=== PATIENT | male | born 1950 | race Caucasian/White ===

== ENCOUNTER 2023-06-01 15:42 | Observation (INO) | payer MEDICARE, OTHER, SELFPAY ==
[2023-06-01] VITALS (13 sets, daily range): BP systolic 130–176; BP diastolic 70–97; PULSE 61–83; RESP 18–20; TEMP 36.2–36.9; O2SAT 94–98; BMI 34.7; BMI 35.5
--- NOTE | 2023-06-01 15:50 | ECG_ITS ---
[facility] Test Date: 2023-06-01 Pat Name: MARIO ROBERTO Department: Room: - Gender: Male Huc: : 1950 Requested By: Order Number: [id number] Reading MD: AYLA LEWIS Measurements Intervals [place] Rate: 69 P: 20 DE: 174 QRS: 15 QRSD: 96 T: -21 QT: 362 QTc: 381 Interpretive Statements 1100 Sinus rhythm 3634 Inferior myocardial infarction, age undetermined 9150 abnormal ECG No previous ECG available for comparison Electronically Signed On 06-02-2023 17:39:57 EST by AYLA LEWIS
--- NOTE | 2023-06-01 15:50 | ED.CHESTPAI1 ---
HPI - Chest Pain General Chief Complaint: Chest Pain Stated Complaint: Chest Pain Time Seen by Provider: 06/01/23 15:50 Source: patient Mode of arrival: walk-in History of Present Illness HPI narrative: The patient presenting to us with a retrosternal chest pain that started while he was walking his dog outside, almost an hour before arrival, the patient was pressure-like not associate with any nausea vomiting or chills or any sweating. The patient mentioned that he have history of coronary artery disease with 2 stents the patient also mentioned that the pain got better after he received nitro and it went down from 7 to 2 The patient denies any other complaints or feeling sick before this happened, Related Data Home Medications Medication Instructions Recorded Confirmed clopidogrel 75 mg tablet 75 mg PO Q24H 06/01/23 06/01/23 lisinopril 5 mg tablet 5 mg PO Q24H 06/01/23 06/01/23 metoprolol tartrate 25 mg tablet 25 mg PO Q24H 06/01/23 06/01/23 nitroglycerin 0.4 mg sublingual 0.4 mg sublingual Q5M 06/01/23 06/01/23 tablet pantoprazole 20 mg tablet,delayed 20 mg PO Q24H 06/01/23 06/01/23 release rosuvastatin 10 mg tablet 10 mg PO Q24H 06/01/23 06/01/23 Allergies Allergy/AdvReac Type Severity Reaction Status Date / Time No Known Drug Allergies Allergy Verified 06/01/23 15:49 Review of Systems ROS Status of ROS 10 or more systems reviewed and unremarkable except as noted in history and below Exam Narrative Exam Narrative: Nurses notes and vital signs reviewed and patient is not hypoxic. General: Well-appearing and in no apparent distress. Skin: Warm, dry, no pallor noted. No rash. Head: Normocephalic, atraumatic. Neck: Supple, non-tender. Eye: Pupils are equal, round and EOMI. No scleral icterus. Ears, Nose, Mouth, and Throat: TM are clear, no nasal mucosal hypertrophy. Oral mucosa is moist, no posterior oropharynx erythema, uvula is mid-line Cardiovascular: Regular Rate and Rhythm without murmur, gallop or rub. Respiratory: No accessory muscle use or respiratory distress. Lungs are clear to auscultation, no wheezing, rales or rhonchi Chest Wall: no tenderness Back: No midline thoracic or lumbar vertebral tenderness. No CVA tenderness Musculoskeletal: normal ROM, no calf or popliteal tenderness, no lower extremity edema/swelling GI: Abdomen is soft, non-distended. Normal bowel sounds. No masses appreciated. No tenderness to palpation. No rebound, guarding, or rigidity noted. Neurological: A&O x4. No cranial nerve dysfunction observed. No truncal ataxia. Moves all extremities. Sensation intact. Psychiatric: Cooperative and interactive. Normal mood and affect. Constitutional Vital Signs, click to edit/add: Last Vital Signs Temp 97.6 F 06/01/23 15:45 Pulse 64 06/01/23 17:38 Resp 18 06/01/23 17:38 BP 158/97 H 06/01/23 18:41 Pulse Ox 98 06/01/23 17:38 O2 Del Method Room Air 06/01/23 15:45 Course Vital Signs Vital signs: Vital Signs Temperature 97.6 F 06/01/23 15:45 Pulse Rate 76 06/01/23 15:45 Respiratory Rate 18 06/01/23 15:45 Blood Pressure 176/88 H 06/01/23 15:45 Pulse Oximetry 96 06/01/23 15:45 Oxygen Delivery Method Room Air 06/01/23 15:45 Temperature 97.6 F 06/01/23 15:45 Pulse Rate 64 06/01/23 17:38 Respiratory Rate 18 06/01/23 17:38 Blood Pressure 158/97 H 06/01/23 18:41 Pulse Oximetry 98 06/01/23 17:38 Oxygen Delivery Method Room Air 06/01/23 15:45 MDM - Chest Pain MDM Narrative Medical decision making narrative: The patient blood pressure upon presentation was elevated and he does have multiple risk factors His EKG upon presentation showing sinus rhythm with a heart rate of 60 with T wave inversion in lead III and aVF The patient CBC and chemistry showed no acute significant pathology Patient case was discussed with who the curling machine operator on-call and he agreed that the patient need observation specially after that pain resolved with nitroglycerin and the patient is high risk with the new EKG changes compared to his last EKG from 2004 The patient had no pain in the ER after the nitroglycerin that he received The patient case was discussed with Dr. Benjamin and she agrees with the above plan Lab Data Labs: Lab Results 06/01/23 06/01/23 Range/Units 16:00 17:23 WBC 6.1 (4.0-11.0) 10^3/uL RBC 4.52 L (4.70-6.10) 10^6/uL Hgb 13.7 L (14.0-18.0) g/dL Hct 40.9 L (42.0-54.0) % MCV 90.5 (80.0-94.0) fL MCH 30.3 (25.9-34.0) pg MCHC 33.5 (29.9-35.2) g/dL RDW 12.8 (11.0-15.0) % Plt Count 182 (150-450) 10^3/uL MPV 9.1 L (9.5-13.5) fL Neut % (Auto) 59.8 (43.0-75.0) % Lymph % (Auto) 27.5 (20.5-60.0) % Winkler % (Auto) 9.2 (1.7-12.0) % Eos % (Auto) 2.8 (0.9-7.0) % Baso % (Auto) 0.5 (0.2-2.0) % Neut # (Auto) 3.7 (1.4-6.5) 10^3/uL Lymph # (Auto) 1.7 (1.2-3.8) 10^3/uL Winkler # (Auto) 0.6 (0.3-0.8) 10^3/uL Eos # (Auto) 0.2 (0.0-0.7) 10^3/uL Baso # (Auto) 0.0 (0.0-0.1) 10^3/uL Abs Immat Gran (auto) 0.01 (0.00-0.03) 10^3/uL Imm/Tot Granulo (auto) 0.2 (0.0-0.5) % PT 10.4 (9.0-11.6) sec INR 0.98 Sodium 139 (136-145) mmol/L Potassium 3.9 (3.5-5.1) mmol/L Chloride 102 (98-107) mmol/L Carbon Dioxide 29.8 (21.0-32.0) mmol/L Anion Gap 11.1 BUN 16.0 (7.0-18.0) mg/dL Creatinine 0.95 (0.70-1.30) mg/dL Est GFR ( Amer) >60 (>=60) Est GFR (Non-Af Amer) >60 (>=60) BUN/Creatinine Ratio 16.8 Glucose 111 H (74-106) mg/dL Calcium 9.5 (8.5-10.1) mg/dL Total Bilirubin 0.3 (0.2-1.0) mg/dL AST 18 (15-37) U/L ALT 38 (16-63) U/L Alkaline Phosphatase 59 (46-116) U/L Troponin I High Sens 10.9 13.2 (4.0-76.1) pg/mL Total Protein 7.1 (6.4-8.2) g/dL Albumin 3.8 (3.4-5.0) g/dL Globulin 3.3 g/dL Albumin/Globulin Ratio 1.2 Discharge Plan Discharge Chief Complaint: Chest Pain Clinical Impression: Chest pain Qualifiers: Chest pain type: chest pain due to myocardial ischemia Ischemic chest pain type: other angina pectoris type Qualified Code(s): I20.89 - Other forms of angina pectoris Patient Disposition: Admitted As Inpatient Time of Disposition Decision: 18:57
--- NOTE | 2023-06-01 15:51 | XR_ITS ---
The [address] [address] Patient Name: MARIO ROBERTO MRN: [id number] date: 1950 Sex: M Assigned Patient Location: ER Current Patient Location: ER Accession/Order Number: [id number] Exam Date: 06/01/2023 15:58 Report Date: 06/01/2023 16:55 At the request of: ANGEL MAX Procedure: XR chest 1V EXAM: XR chest 1V TECHNIQUE: Single AP view chest HISTORY: cp COMPARISON: None. FINDINGS: The heart and mediastinum are unremarkable. The lung watts are clear of any acute infiltrate, effusion or mass. No acute bony abnormality. XR/XR chest 1V IMPRESSION: No acute pulmonary disease. Electronically authenticated by: ELSIE ALEXANDER Date: 06/01/2023 16:55
[2023-06-01] MEDS: NITROGLYCERIN 0.4 MG BOTTLE PO (16:00)
[2023-06-01 16:07] LABS: Basophils Percent Auto 0.5 % (0.2-2.0); Eosinophils Absolute Auto 0.2 10^3/uL (0.0-0.7); Eosinophils Percent Auto 2.8 % (0.9-7.0); Hematocrit 40.9 % (42.0-54.0); Hemoglobin 13.7 g/dL (14.0-18.0); Immature Granulocytes Abs Auto 0.01 10^3/uL (0.00-0.03); Immature Granulocytes Pct Auto 0.2 % (0.0-0.5); Lymphocytes Absolute Auto 1.7 10^3/uL (1.2-3.8); Lymphocytes Percent Auto 27.5 % (20.5-60.0); Mean Corpuscular HGB Conc 33.5 g/dL (29.9-35.2); Mean Corpuscular Hemoglobin 30.3 pg (25.9-34.0); Mean Corpuscular Volume 90.5 fL (80.0-94.0); Mean Platelet Volume 9.1 fL (9.5-13.5); Monocytes Absolute Auto 0.6 10^3/uL (0.3-0.8); Monocytes Percent Auto 9.2 % (1.7-12.0); Neutrophils Absolute Auto 3.7 10^3/uL (1.4-6.5); Neutrophils Percent Auto 59.8 % (43.0-75.0); Platelet Count 182 10^3/uL (150-450); Red Blood Count 4.52 10^6/uL (4.70-6.10); Red Cell Distribution Width 12.8 % (11.0-15.0); White Blood Count 6.1 10^3/uL (4.0-11.0)
[2023-06-01 16:19] LABS: Alanine Aminotransferase 38 U/L (16-63); Albumin Globulin Ratio 1.2; Albumin Level 3.8 g/dL (3.4-5.0); Alkaline Phosphatase 59 U/L (46-116); Anion Gap 11.1; Aspartate Amino Transferase 18 U/L (15-37); BUN Creatinine Ratio 16.8; Bilirubin Total 0.3 mg/dL (0.2-1.0); Calcium 9.5 mg/dL (8.5-10.1); Carbon Dioxide 29.8 mmol/L (21.0-32.0); Chloride 102 mmol/L (98-107); Estimated GFR (African America >60 (>=60); Estimated GFR (Non-African Ame >60 (>=60); Globulin 3.3 g/dL; Glucose 111 mg/dL (74-106); Potassium 3.9 mmol/L (3.5-5.1); Sodium 139 mmol/L (136-145); Total Protein 7.1 g/dL (6.4-8.2)
[2023-06-01 16:22] LABS: Troponin I High Sensitivity 10.9 pg/mL (4.0-76.1)
[2023-06-01 16:27] LABS: INR 0.98; Prothrombin Time 10.4 sec (9.0-11.6)
[2023-06-01 17:46] LABS: Troponin I High Sensitivity 13.2 pg/mL (4.0-76.1)
--- NOTE | 2023-06-01 18:20 | ECG_ITS ---
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
--- NOTE | 2023-06-01 23:22 | W.PM.TELEPN ---
Progress Note: Subjective Subjective Interval history: Pt is a 72M with PMH of CAD s/p PCI in 2004 (2 stents) and again in July 2022 (1 stent) who presented to the ED with complaing of chest pain which came on while walking his dog today. He states that he usually is very active but since March he has been walking much less duet o back stacie. Today, he felt a 6/10 pressure like retrosternal chest pain, nonradiating, constant, which is somewhat reproducible, relieved with nitro, and worse with activity. Given his history, he was concerned about his heart and came to the ED for evaluation. In the ED, his EKG was noted to have TWI in III and aVF which was not there in 2004. His chest pain persists at a 3/10 right now, though troponin so far has been negative. Dr. Quintero was contacted bu the ED and recommended observaion and a stress test. 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 Lawler. Patient denies palpitations, sweating, shortness of breath, cough, recent exertion/repetitive upper body movements, cough, fever/chikls. He has a remote historfy of smoking cigars, 3-5/day for 15 years. Quit 25 years ago. No significant EtOH. No drug use. Exam Narrative Exam Narrative: Gen: NAD HEENT: PEERL, NC/AT Neck: FROM CV: RRR, No murmur Pulm: CTA B/L. lNo wheezes GI: No tenderness, no guarding Musculoskeletal: MELGAR, No edema Neuro: AAOx3, no focal deficits Psych: Calm , Cooperative Constitutional Vital Signs, click to edit/add: Last Vital Signs Temp 98.2 F 06/01/23 22:00 Pulse 69 06/01/23 22:00 Resp 18 06/01/23 22:00 BP 132/74 06/01/23 22:00 Pulse Ox 94 L 06/01/23 22:00 O2 Del Method Room Air 06/01/23 22:00 Progress Note: Objective Labs Labs: Short CBC 06/01/23 Range/Units 16:00 WBC 6.1 (4.0-11.0) 10^3/uL Hgb 13.7 L (14.0-18.0) g/dL Hct 40.9 L (42.0-54.0) % Plt Count 182 (150-450) 10^3/uL BMP 06/01/23 16:00 Sodium 139 Potassium 3.9 Chloride 102 Carbon Dioxide 29.8 BUN 16.0 Creatinine 0.95 Glucose 111 H Calcium 9.5 Liver Function 06/01/23 Range/Units 16:00 Total Bilirubin 0.3 (0.2-1.0) mg/dL AST 18 (15-37) U/L ALT 38 (16-63) U/L Alkaline Phosphatase 59 (46-116) U/L Albumin 3.8 (3.4-5.0) g/dL Progress Note: A&P Assessment and Plan (1) Chest pain: Assessment and Plan: Place in observation Telemetry monitoring TSH Lipid panel Resume ASA, Plavix Hold beta tyler for stress test Resume Crestor 10mg Echo Stress test in AM NPO pMN Pt requests that we contact Dr. Lawler, Cardiology Qualifiers: Chest pain type: chest pain due to myocardial ischemia Ischemic chest pain type: other angina pectoris type Qualified Code(s): I20.89 - Other forms of angina pectoris Telemedicine Attestation Telemedicine Attestation I conducted this encounter from [] via secure live, [id number] video conference with the patient, located at [facility] with []. Prior to the interview, the risks and benefits of telemedicine were discussed with the patient and verbal consent was obtained.
--- NOTE | 2023-06-01 23:45 | ECG_ITS ---
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
[2023-06-02] VITALS (7 sets, daily range): BP systolic 138; BP diastolic 83; PULSE 61–76; RESP 18; TEMP 36.4; O2SAT 92–96
[2023-06-02] MEDS: 0.9 % SODIUM CHLORIDE 1,000 ML 100 ML IV (02:18)
[2023-06-02 06:20] LABS: Chol HDL Ratio 3.7; Cholesterol 144 mg/dL (<=200); HDL Cholesterol 39 mg/dL (40-60); Triglycerides 83 mg/dL (<=150); VLDL CHOLESTEROL 16.6 mg/dL
[2023-06-02 06:23] LABS: TSH W/ REFLEX FT4 2.651 (0.358-3.740); Troponin I High Sensitivity 14.4 pg/mL (4.0-76.1)
--- NOTE | 2023-06-02 15:52 | PM.HP ---
H&P: HPI History of Present Illness Chief complaint: Chest Pain Narrative: 72 y/o male to ER with chest pain. History of CAD and 2 prior stents with most recent in July 2022. Walking dog for about 1 hour and developed chest pain. C/o mild heaviness and pressure across mid chest. No radiation into neck or arm. No radiation into scapula. No SOB. Took NTG and improved but still present and to ER. BP initially elevated but improved. CE negative x 2. EKG showed T wave inversions in leads III and AVF that ER did not see on EKG in 2004. Admitted for observation. Feels well since admission and minimal pain. Moving around room without difficulty. Review of Systems ROS Constitutional Denies: fever, chills or night sweats Cardiovascular Reports: chest pain; Denies: palpitations, edema or lightheadedness Respiratory Denies: shortness of breath, cough or wheezing Gastrointestinal Denies: abdominal pain, nausea, vomiting or diarrhea Genitourinary Denies: painful urination PFSH [facility] Medical History (Updated 06/02/23 @ 10:31 by Stiven Carvajal MD) Rotator cuff arthropathy of left shoulder ?M12.812 - Other specific arthropathies, not elsewhere classified, left shoulder (ICD-10) Surgical History (Updated 06/01/23 @ 20:59 by Nini Holm) History of heart artery stent ?Z95.5 - Presence of coronary angioplasty implant and graft (ICD-10) History of knee replacement ?Z96.659 - Presence of unspecified artificial knee joint (ICD-10) Family History (Updated 06/01/23 @ 21:00 by Nini Holm) Mother Family history of stroke Family history of diabetes mellitus Brother Family history of cancer Other Family history of hypertension Social History (Updated 06/01/23 @ 21:02 by Nini Holm) Within the past year, how often did you have a drink containing alcohol: 2-4 times a month Within the past year, how many standard drinks containing alcohol did you have on a typical day: 1 or 2 Within the past year, how often did you have six or more drinks on one occasion: never Total score: 0 Score interpretation: A score less than 4 is consistent with normal alcohol consumption. Smoking status: Never smoker Non-prescribed substance use: denies use Previous occupational history: Retired Highest level of school completed/degree received: some college, no degree Are you now , , , , never or living with a partner: In a typical week, how many times do you talk on the telephone with family, friends, or neighbors: 3 or more times per week How often do you get together with friends or relatives: 3 or more times per week How often do you attend synagogue or anabaptism services: 1-3 times per year Do you belong to any clubs or organizations such as synagogue groups unions, [employer] or athletic groups, or school groups: no Total score: 2 Score interpretation: A score of greater than or equal to 2 indicates the lowest level of social isolation. Little interest or pleasure in doing things: not at all Feeling down, depressed, or hopeless: not at all Feel stressed/tense/nervous/anxious/difficulty sleeping: not at all Do you think of yourself as: straight/heterosexual Gender Identity: male Meds Home Medications and Allergies Home Medications Medication Instructions Recorded Confirmed Type aspirin 81 mg tablet,delayed 81 mg PO DAILY 06/01/23 06/01/23 History release (Adult Low Dose Aspirin) clopidogrel 75 mg tablet 75 mg PO Q24H 06/01/23 06/01/23 History lisinopril 5 mg tablet 5 mg PO Q24H 06/01/23 06/01/23 History metoprolol tartrate 25 mg tablet 25 mg PO Q24H 06/01/23 06/01/23 History nitroglycerin 0.4 mg sublingual 0.4 mg sublingual Q5M 06/01/23 06/01/23 History tablet rosuvastatin 10 mg tablet 10 mg PO Q24H 06/01/23 06/01/23 History Allergies Allergy/AdvReac Type Severity Reaction Status Date / Time No Known Drug Allergies Allergy Verified 06/01/23 15:49 Exam Constitutional Vital Signs, click to edit/add: Last Vital Signs Temp 97.6 F 06/02/23 06:00 Pulse 76 06/02/23 12:00 Resp 18 06/02/23 06:00 BP 138/83 06/02/23 06:00 Pulse Ox 92 L 06/02/23 06:00 O2 Del Method Room Air 06/02/23 06:00 Documenting provider has reviewed patient's vital signs: yes Common normals: no apparent distress, oriented x3 and alert HENMT Common normals: normocephalic Eye Common normals: PERRL Respiratory Common normals: normal respiratory effort and clear to auscultation bilaterally Cardio Common normals: regular rate, regular rhythm, no gallops, no murmurs and no rub GI Common normals: Normal to inspection, nondistended, normoactive bowel sounds present and non-tender Extremity Common normals: no pedal edema Results Labs Labs: Short CBC 06/01/23 Range/Units 16:00 WBC 6.1 (4.0-11.0) 10^3/uL Hgb 13.7 L (14.0-18.0) g/dL Hct 40.9 L (42.0-54.0) % Plt Count 182 (150-450) 10^3/uL BMP 06/01/23 16:00 Sodium 139 Potassium 3.9 Chloride 102 Carbon Dioxide 29.8 BUN 16.0 Creatinine 0.95 Glucose 111 H Calcium 9.5 Liver Function 06/01/23 Range/Units 16:00 Total Bilirubin 0.3 (0.2-1.0) mg/dL AST 18 (15-37) U/L ALT 38 (16-63) U/L Alkaline Phosphatase 59 (46-116) U/L Albumin 3.8 (3.4-5.0) g/dL ECG Attestation: ?I have reviewed the pertinent ECG results. Assessment and Plan Assessment and Plan (1) Chest pain: Qualifiers: Chest pain type: chest pain due to myocardial ischemia Ischemic chest pain type: other angina pectoris type Qualified Code(s): I20.89 - Other forms of angina pectoris (2) CAD (coronary artery disease): (3) Benign essential hypertension: Plan Patient not having ACS and cardiac enzymes negative. Review of records showed EKG in July 2022 that had same T wave changes in III and AVF. Discharge home. Resume home medication without change. F/u with cardiology in 1-2 weeks and may need outpatient stress testing.
--- NOTE | 2023-06-03 10:14 | CM.DCFOLLOWU ---
Person spoke with: patient How are you feeling? I am feeling much better How is your pain? I am not having any pain Did you understand your discharge instructions? yes Do you have any questions about your discharge instructions? no Were you given any prescriptions at discharge? no Were you able to get your prescriptions filled? n/a Do you understand how to take your medications as ordered? yes Do you have any questions about your follow up appointment and do you plan to keep your follow up appointment? I called Dr. Lawler's office today and I am just waiting on a call back to schedule my appointment. Is there anything else that you would like to discuss? no thank you Questions/Comments/Concerns/Other: n/a
== END 2023-06-02 13:25 | disposition home or self-care (01) ==
LOC: ER 18:57 → MS 19:45
PROVIDERS: Internal Medicine; Admitting Provider Family Medicine; Emergency Provider Emergency Medicine; PCP Family Medicine; Visit Provider Family Medicine
DX: I25.118 Atherosclerotic heart disease of native coronary artery with other forms of angina pectoris (principal); I10 Essential (primary) hypertension; Z95.5 Presence of coronary angioplasty implant and graft; Z79.82 Long term (current) use of aspirin; Z79.899 Other long term (current) drug therapy; Z87.891 Personal history of nicotine dependence; Z96.659 Presence of unspecified artificial knee joint
CPT/HCPCS: 36415; 71045; 80053; 80061; 84443; 84484; 85025; 85610; 93005; 94761; 99285; G0378; J1650; Q3014